=== PATIENT | female | born 1945 | race Caucasian/White ===

== ENCOUNTER 2021-10-30 08:48 | Outpatient (CLI) | payer MEDICARE | END 2021-10-30 08:49 | disposition home or self-care (01) | LOC: CSHMRI 08:48 | PROVIDERS: ATTEND Family Medicine | DX: M54.41 Lumbago with sciatica, right side (principal); M48.061 Spinal stenosis, lumbar region without neurogenic claudication | CPT/HCPCS: 72148 ==